=== PATIENT | female | born 1990 | race Caucasian/White ===

== ENCOUNTER 2018-01-19 11:16 | Emergency (ER) | payer OTHER ==
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
[2018-01-19 13:35] VITALS: BP 116/84; PULSE 86; RESP 18; TEMP 98.2; O2SAT 96
== END 2018-01-19 13:34 | disposition home or self-care (01) ==
DX: S00.83XA Contusion of other part of head, initial encounter (principal); S00.81XA Abrasion of other part of head, initial encounter; V49.40XA Driver injured in collision with unspecified motor vehicles in traffic accident, initial encounter; Y92.410 Unspecified street and highway as the place of occurrence of the external cause; Y99.8 Other external cause status; Y93.89 Activity, other specified